=== PATIENT | male | born 1965 | race Caucasian/White ===

== ENCOUNTER → 2020-08-06 | Outpatient (CLI) | payer OTHER ==
[~2020-08-06] MED LIST: DIABETA PO; HYDROCODON-ACE1 EAC2 PO; HYDROCODONE-AC1 EAC1 PO; LOVENOX30 MG/0.3 SQ
== END ==
LOC: KOH-I 10:28
DX: Z01.818 Encounter for other preprocedural examination (principal); S82.141A Displaced bicondylar fracture of right tibia, initial encounter for closed fracture; X58.XXXA Exposure to other specified factors, initial encounter
CPT/HCPCS: 73700

== ENCOUNTER 2020-08-12 05:59 | Day surgery (SDC) | payer OTHER ==
[~2020-08-12] VITALS: Ht 177.8 cm; Wt 80.9 kg
[2020-08-12] MEDS ORDERED: HYDROCODONE-AC1 EAC1 PO (06:45)
[2020-08-12 06:54] LABS: HEMOGLOBIN 13.5 gm/dl (14.0-17.5); RED BLOOD COUNT 4.21 M/UL (4.20-5.50); WHITE BLOOD COUNT 8.1 K/UL (4.5-11.0)
[2020-08-12 07:11] LABS: BUN/CREATININE RATIO 19 (0-10)
[2020-08-13] MEDS ORDERED: DIABETA PO (06:48)
[2020-08-13] MEDS ORDERED: LOVENOX30 MG/0.3 SQ (09:15)
[2020-08-13 09:50] LABS: HEMOGLOBIN 11.6 gm/dl (14.0-17.5); RED BLOOD COUNT 3.59 M/UL (4.20-5.50); WHITE BLOOD COUNT 7.4 K/UL (4.5-11.0)
[2020-08-13] MEDS ORDERED: HYDROCODON-ACE1 EAC2 PO (12:03)
== END 2020-08-13 12:47 | disposition home or self-care (01) ==
LOC: OR 05:59 → M/S 19:12 → CCU 20:38 → M/S 21:04 → OR 08-13 12:47
PROVIDERS: Nurse Practitioner Family; Orthopaedic Surgery
DX: S82.141A Displaced bicondylar fracture of right tibia, initial encounter for closed fracture (principal); E11.9 Type 2 diabetes mellitus without complications; Z79.84 Long term (current) use of oral hypoglycemic drugs; V83.4XXA Person injured while boarding or alighting from special industrial vehicle, initial encounter
CPT/HCPCS: 36415; 73560; 73590; 76000; 80048; 82962; 85025; 85027; 97162; 97165; C1713; J0592; J0690; J1100; J1170; J1650; J1885; J2001; J2250; J2405; J2704; J2765; J2795; J3010; J7030; J7120